=== PATIENT | male | born 1955 | race Hispanic/Latino ===

== ENCOUNTER 2024-11-22 11:18 | Emergency (ER) | payer MEDICARE ==
[~2024-11-22] VITALS: Ht 175.3 cm; Wt 93.0 kg
[~2024-11-22 11:18] MED LIST: DIAZ5TAB4 PO; DORZ10DR10 OU; LATA2.5D14 OU; LIDO TP; MELOXICAM TP; PREG100C PO; TRAM50TA4 PO; [UNRECOGNIZED DRUG - OTHER] TP
--- NOTE | 2024-11-22 12:13 | EKG ---
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
[2024-11-22] MEDS: ORPHENADRINE 60MG/2ML IM ONE (12:49)
[2024-11-22] MEDS: TRIAMCINOLONE ACETONIDE 40 MG/ML 1ML VIAL IM ONE (12:49)
--- NOTE | 2024-11-22 12:49 | HMCIMG ---
CT NECK WITHOUT CONTRAST INDICATION: Neck pain and burning sensation to back of neck TECHNIQUE: 3D helical CT acquisition images were obtained from the level of the skull base to the thoracic inlet without contrast, and coronal and sagittal reformats were provided. CT was performed with one or more of the following dose reduction techniques: Automated exposure control, adjustment of the mA and/or kV according to patient size, or use of iterative reconstruction technique. COMPARISON: None FINDINGS: ON NONCONTRAST IMAGING: The visualized portions of the brain, skull base, orbits, and paranasal sinuses appear normal. The visualized nasopharynx and nasal cavity appear normal. The oral cavity, oropharynx, and hypopharynx appear normal. The cervical esophagus and visualized portion of the thoracic esophagus appear normal. The larynx and visualized trachea appear normal. The extramucosal spaces of the neck appear normal on noncontrast imaging. The parotid and submandibular glands appear normal. The thyroid gland appears normal. No cervical lymphadenopathy noted. Mild calcific plaque along both common carotid arterial bulb de guzman. Straightening of the normal cervical lordosis may be related to overlying muscle spasm, underlying degenerative joint disease and/or patient positioning. Multilevel mild to moderate cervical spondylosis. The upper mediastinum and lung apices appear normal. IMPRESSION: No evidence for any acute soft tissue neck abnormality.
[2024-11-22] MEDS: diazePAM 5 MG TAB PO ONE (14:14)
--- NOTE | 2024-11-22 14:35 | ERN ---
General Chief Complaint: Neck Pain Stated Complaint: NECK PAIN Time Seen by MD: 11:19 Source: patient History of Present Illness Initial Comments PATIENT IS A 69-YEAR-OLD MALE COMING IN TO BE EVALUATED FOR CHRONIC NECK PAIN. PER PATIENT HE HAD AN INJURY IN [address] VOSS THE NEUROSURGEON. HE STATES THAT HE WAS TOLD THAT HE NEEDED ANOTHER OPERATION BUT HE HELD OFF ON IT. SINCE THEN PATIENT HAS BEEN HAVING ON AND OFF NECK PAIN. Allergies: Coded Allergies: No Known Drug Allergies (Verified Allergy, Unknown, 09/21/15) Home Meds Reported Medications Dorzolamide HCl/Timolol Maleat (Dorzolamide-Timolol Eye Drops) 10 Ml Drops, 1 DROP OU BID, DROP 09/22/15 [Meloxicam/Lido/Cmp] No Conflict Check, 2 G TP AD 09/21/15 Latanoprost (Latanoprost) 2.5 Ml Drops, 2.5 ML OU HS, DROP 09/21/15 Diazepam (Diazepam) 5 Mg Tablet, 5 MG PO HS, TAB 09/21/15 Tramadol Hcl (Tramadol HCl) 50 Mg Tablet, 2 TAB PO AD PRN for PAIN, TAB 09/21/15 Pregabalin (Lyrica) 100 Mg Capsule, 100 MG PO BID, CAP 09/21/15 Past Medical History Past Medical History: No Pertinent History Past Surgical History: Appendectomy, Other Surgical History Other: BILATERAL HIP SX. ROS Dictation CONSTITUTIONAL: NO CHILLS, NO FEVER, NO WEAKNESS, NO DIAPHORESIS, NO MALAISE. HEAD/FACE: NO SIGNS OF TRAUMA. EENT: NO EYE PAIN, NO BLURRED VISION, NO TEARING, NO DOUBLE VISION, NO EAR PAIN, NO EAR DISCHARGE, NO NOSE PAIN, NO NASAL CONGESTION, NO THROAT PAIN, NO THROAT SWELLING, NO MOUTH PAIN. RESPIRATORY: NO COUGH, NO ORTHOPNEA, NO SOB, NO STRIDOR, NO WHEEZING. CARDIOVASCULAR: NO CHEST PAIN, NO EDEMA, NO PALPITATIONS, NO SYNCOPE. GASTROINTESTINAL/ABDOMINAL: NO ABDOMINAL PAIN, NO CONSTIPATION, NO DIARRHEA, NO NAUSEA, NO VOMITING. GENITOURINARY: NO ABNORMAL DISCHARGE, NO DYSURIA, NO FREQUENT URINATION, NO HEMATURIA. NO COMPLAINTS OF PAIN IN THE GENITALS. MUSCULOSKELETAL: NO BACK PAIN, NO GOUT, NO JOINT PAIN, NO JOINT SWELLING, NO MUSCLE PAIN, NO MUSCLE STIFFNESS, NO NECK PAIN. INTEGUMENTARY: NO CHANGE IN COLOR, NO CHANGE IN HAIR/NAILS, NO DRYNESS, NO LE SHARMILA, NO LUMPS, NO RASH. NEUROLOGICAL/PSYCH: NO ANXIETY, NOT DEPRESSED, NO EMOTIONAL PROBLEM, NO HEADACHE, NO NUMBNESS, NO PRE-EXISTING DEFICIT, NO HISTORY OF SEIZURES, NO TREMORS, NO WEAKNESS. HEMATOLOGIC/LYMPHATIC: NOT ANEMIC, NO HISTORY OF BLOOD CLOTS, NO APPARENT BLEEDING, NO BRUISING, GLANDS NOT SWOLLEN. ALL SYSTEMS NEGATIVE, EXCEPT NOTED. Physical Exam Physical Exam Dictation VITAL SIGNS: REVIEWED. GENERAL APPEARANCE: ALERT, ORIENTED X3, NO ACUTE DISTRESS, OBESE. HEAD AND FACE: NON-TRAUMATIC. EYES: PERRL, PINK CONJUNCTIVAS, EYELID NO TRAUMA, ANTERIOR CHAMBER CLEAR. EARS: PINNAS INTACT AND NO SIGNS OF TRAUMA OR ERYTHEMA. EAR CANALS CLEAR AND NO DISCHARGE. TMS NO ERYTHEMA. NOSE: NO DISCHARGE, NO BLEEDING. OROPHARYNX: MOUTH NORMAL, TEETH NO CARIES, TONGUE PINK. PHARYNX CLEAR, NO ERYTHEMA. TONSILS NO EXUDATES, NO ABSCESSES NOTED. MUCOUS MEMBRANE MOIST. NECK: SUPPLE, NON-TENDER, NO THYROMEGALY, NO MASSES, NO JVD, NO BRUITS. BREAST: DEFERRED. CHEST: NO TENDERNESS, NO CREPITUS, NO PARADOXICAL MOVEMENT, NO RETRACTIONS. LUNGS: CLEAR, WELL-VENTILATED, SYMMETRIC, NO RALES, NO WHEEZING, NO RHONCHI, NO STRIDOR, GOOD BREATH SOUNDS BILATERALLY. HEART: REGULAR RATE, REGULAR RHYTHM, NO MURMUR, NO GALLOPS. VASCULAR: NO PERIPHERAL EDEMA. ABDOMEN: SOFT, POSITIVE BOWEL SOUNDS, NONDISTENDED, NO GUARDING, NONTENDER, NO REBOUND, NO MASSES NO HEPATOMEGALY, NO SPLENOMEGALY, NO GUAMAN'S SIGN, NO HERNIAS. RECTAL: DEFERRED. GENITAL: DEFERRED. NEUROLOGICAL: NORMAL SPEECH, GROSS MOTOR FUNCTION INTACT, GROSS SENSORY FUNCTION INTACT. MUSCULOSKELETAL: NECK NONTENDER, FULL RANGE OF MOTION, BACK NONTENDER, FULL RANGE OF MOTION. EXTREMITIES: NONTENDER, FULL RANGE OF MOTION. SKIN: COLOR PINK, DRY, NO TURGOR, NO RASH, NO LACERATIONS, NO ABRASIONS, NO CONTUSIONS. LYMPHATICS: DEFERRED. Results Laboratory and Microbiology Labs Reviewed?: Yes EKG/XRAY/US/CT/MRI CT Scan Comment [place] [address] [place] [id number] IMAGING REPORT Signed PATIENT: ANH DE GUZMAN MR#: [id number] : 1955 SEX: M AGE: 69 LOCATION: [facility] ORDER 46 STATUS: REG REPORT#: [id number] SERVICE 114 REASON: neck pain ORDERING PHYSICIAN: LILLI KUHN MD PROCEDURE: NKSOFTI WO - CT NECK SOFT TISS W/O CONTRAST CT NECK WITHOUT CONTRAST INDICATION: Neck pain and burning sensation to back of neck TECHNIQUE: 3D helical CT acquisition images were obtained from the level of the skull base to the thoracic inlet without contrast, and coronal and sagittal reformats were provided. CT was performed with one or more of the following dose reduction techniques: Automated exposure control, adjustment of the mA and/or kV according to patient size, or use of iterative reconstruction technique. COMPARISON: None FINDINGS: ON NONCONTRAST IMAGING: The visualized portions of the brain, skull base, orbits, and paranasal sinuses appear normal. The visualized nasopharynx and nasal cavity appear normal. The oral cavity, oropharynx, and hypopharynx appear normal. The cervical esophagus and visualized portion of the thoracic esophagus appear normal. The larynx and visualized trachea appear normal. The extramucosal spaces of the neck appear normal on noncontrast imaging. The parotid and submandibular glands appear normal. The thyroid gland appears normal. No cervical lymphadenopathy noted. Mild calcific plaque along both common carotid arterial bulb de guzman. Straightening of the normal cervical lordosis may be related to overlying muscle spasm, underlying degenerative joint disease and/or patient positioning. Multilevel mild to moderate cervical spondylosis. The upper mediastinum and lung apices appear normal. IMPRESSION: No evidence for any acute soft tissue neck abnormality. DICTATED BY: WOOD GILL MD DATE: 11/22/241244 ELECTRONICALLY SIGNED BY: WOOD GILL MD DATE: 11/22/241248 [facility] MDM: DIFFERENTIAL DIAGNOSIS: CHRONIC NECK PAIN, NECK SPASMS, TORTICOLLIS, PATIENT IS A 69-YEAR-OLD GENTLEMAN COMING IN TO BE EVALUATED FOR PAIN MANAGEMENT. PER PATIENT HE HAD BEEN HAVING NECK PAIN FOR MANY YEARS. HE STATES THAT PAIN WAS EXACERBATED A COUPLE OF DAYS AGO. DURING ER VISIT PATIENT RECEIVED BENZODIAZEPINES STATES THE PAIN SUBSIDED. ADVISED HIM APPROPRIATE FOLLOW UP WITH PCP FOR LONG-TERM MANAGEMENT OF NECK SPASMS. ED Course Orders Procedure Category Date Status Time Ct Neck Soft Tiss W/O CT 11/22/24 Resulted Contrast 11:46 Orphenadrine Citrate PHA 11/22/24 Complete (Norflex) 12:00 Triamcinolone Acet PHA 11/22/24 Complete 40mg/Ml 1ml (Kenalog 12:00 12 Lead Ekg Tracing- EKG 11/22/24 Complete Technical 11:46 Ct Head/Brain W/O CT 11/22/24 Logged Contrast 12:29 Diazepam 5mg Tab PHA 11/22/24 Complete (Valium 5 Mg Tab) 14:00 Current Medications Medications (Trade) Dose Ordered Sig/Aiyana Route PRN Reason Start Time Stop Time Status Last Admin Dose Admin Diazepam (VALium 5 mg TAB) 5 mg ONCE ONCE PO 11/22/24 14:00 11/22/24 14:01 DC 11/22/24 14:14 Orphenadrine Citrate (Norflex) 60 mg ONCE ONCE IM 11/22/24 12:00 11/22/24 12:01 DC 11/22/24 12:49 Triamcinolone Acetonide (Kenalog 40) 40 mg ONCE ONCE IM 11/22/24 12:00 11/22/24 12:01 DC 11/22/24 12:49 Vital Signs Date Time Temp Pulse Resp B/P (MAP) Pulse Ox O2 Delivery O2 Flow Rate FiO2 11/22/24 12:17 99.0 101 16 160/88 96 Room Air* 0 21 11/22/24 11:19 99.3 101 15 160/84 95 Room Air 0 DX & DISP Disposition: Discharge Departure Impression: Primary Impression: Chronic neck pain Condition: Stable Additional Instructions: FOLLOW-UP WITH PRIMARY CARE PROVIDER IN 1 TO 2 DAYS. TAKE MEDICATIONS DIRECTED HERE IN THE EMERGENCY ROOM. OKAY TO CONTINUE HOME MEDICATIONS UNLESS OTHERWISE DISCUSSED DURING YOUR VISIT IN THE EMERGENCY ROOM TODAY. RETURN TO YOUR NEAREST EMERGENCY ROOM IF SYMPTOMS WORSEN OR IF THERE IS NO IMPROVEMENT. C ALL 911 IF YOU NEED IMMEDIATE ASSISTANCE. TAKE TYLENOL [id number] NEEDED AND IF NO CONTRAINDICATIONS ARE PRESENT. INCREASE ORAL HYDRATION. A WOUND CULTURE OR URINE CULTURE WAS ORDERED HERE IN THE EMERGENCY ROOM DEPARTMENT PLEASE FOLLOW-UP WITH PRIMARY CARE PROVIDER AND ADVISE THEM TO GET REPEAT PORTS FROM OUR FACILITY. IF YOU HAD ANY RICARDO WRAP/SPLINTS THAT WERE APPLIED HERE, PLEASE DO NOT REMOVE THEM UNTIL YOU SEE YOUR PRIMARY CARE OR SPECIALTY. REFERRALS: Referrals: SELF,REFERRAL (PCP) BLANCA NUNN MD, LUIS A MD Time of Disposition: 14:34 LILLI KUHN MD Nov 22, 2024 14:35
[2024-11-22 14:38] VITALS: BP 162/95; PULSE 101; RESP 16; TEMP 98.3; O2SAT 98
--- NOTE | 2024-11-22 14:59 | NUR ---
unable to depart pt due to reg process
== END 2024-11-22 14:43 | disposition home or self-care (01) ==
LOC: EDH 11:18
DX: G89.29 Other chronic pain (principal); M54.2 Cervicalgia; Z79.899 Other long term (current) drug therapy; Z90.49 Acquired absence of other specified parts of digestive tract
CPT/HCPCS: 99285; 70490; 96372 ×2; 93005; J3301; J2360